=== PATIENT | female | born 1955 | race Caucasian/White ===

== ENCOUNTER 2018-07-04 13:49 | Outpatient (CLI) | payer MEDICARE, MEDICAID ==
[~2018-07-04] VITALS: Ht 162.6 cm; Wt 60.8 kg
[~2018-07-04 13:49] MED LIST: BACLOFEN10 MG PO; LORAZEPAM0.5 MG ORAL; PANTOPRAZOLE SO40 MG ORAL; VIT D PO; ZOCOR20 MG ORAL
[2018-07-04 15:14] VITALS: BP 104/62
[2018-07-04] MEDS ORDERED: DEXILANT60 MG ORAL (15:16)
--- NOTE | 2018-07-04 22:32 | GI Initial Consult Note ---
History of Present Illness General Date patient seen: Jul 04, 2018 Time patient seen: 14:00 Referring physician: Dr. Cortez Reason for Consultation: Vomiting Present Illness HPI A 63 year old female presents to the clinic, complains of vomiting, left and right lower abdominal pain, also GERD and bloating. Pt had normal colonoscopy in 2012 and 2015. The patient recently undergone a CT that showed inflammation in her small bowel. She was scheduled for a capsule endoscopy, but it was unsuccessful due to poor prep. She presents today for a repeat SBCE to evaluate her small bowel. Patient denies N/V/D. Denies constipation. Denies any unintentional weight loss or changes in dietary habits. No signs of abuse or neglect. Patient is not fall risk. Home Meds Reported Medications Dexlansoprazole (Dexilant) 60 Mg Ortiz., 60 MG ORAL DAILY, CAP 07/04/18 Simvastatin (ZOCOR) 20 Mg Tablet, 30 MG ORAL BEDTIME, TAB 05/30/13 Discontinued Reported Medications Baclofen* (BACLOFEN*) 10 Mg Tablet, 10 MG PO QHS, TAB 06/13/13 [Vit D] No Conflict Check, PO DAILY 05/30/13 Lorazepam* (LORAZEPAM*) 0.5 Mg Tablet, 0.5 MG ORAL PRN, TAB 05/30/13 Pantoprazole* (PANTOPRAZOLE*) 40 Mg Tablet., 40 MG ORAL DAILY 05/30/13 Med list reviewed/reconciled: Yes Allergies: Coded Allergies: ACETAMINOPHEN (Verified Allergy, Mild, 05/30/13) CODEINE (Verified Allergy, Mild, 05/30/13) HYDROCODONE (Verified Allergy, Mild, 05/30/13) IBUPROFEN (Verified Allergy, Mild, 05/30/13) Patient History PMH Narrative hypercholesteremia Past Surgical History: none Pertinent Family History: none Social History: Reports: other - tea; Denies: smoking, alcohol use, drug use Review of Systems All Other Systems: negative except mentioned in HPI Physical Exam Vital Signs Date Time Temp Pulse Resp B/P (MAP) Pulse Ox O2 Delivery O2 Flow Rate FiO2 07/04/18 15:14 98.0 84 16 104/62 97 Sp02 EP Interpretation: reviewed, normal General Appearance: well appearing, no apparent distress, alert Head: normocephalic EENT: PERRL/EOMI, normal ENT inspection Neck: supple Respiratory: normal breath sounds, no respiratory distress Cardiovascular: normal rate Gastrointestinal: normal inspection, non tender, soft, normal bowel sounds, non -distended Rectal: deferred Genitourinary: no CVA tenderness Musculoskeletal: normal inspection, back normal Neurologic: normal inspection, alert, oriented x3, responsive Psychiatric: normal inspection, judgement/insight normal, memory normal Skin: normal inspection, normal color, no rash, warm/dry, palpation normal, well hydrated Lymphatic: normal inspection, no adenopathy GI: Plan Problems: (1) Vomiting (2) Abdominal pain (3) GERD (gastroesophageal reflux disease) (4) Encounter for diagnostic endoscopy Plan Hx of SB inflammation found on recent CT, s/p failed SBCE 2/2 to poor bowel prep SBCE to be scheduled. - CLD & (Miralax) prep instructions given and acknowledged by patient. - NPO @ MI day prior procedure explained. Will follow with additional recs post procedure. The patient was seen and examined at bedside and all new and available data was reviewed in the patients chart. I agree with the above findings, impression and plan. (Patient seen earlier today. Signature stamp does not reflect patient encounter time.). - MD Ania DriverBanner Gateway Medical CenterTa PHYSICS PROFESSOR Jul 04, 2018 22:32
== END 2018-07-04 14:19 | disposition home or self-care (01) ==
LOC: PAN 13:49
DX: R11.10 Vomiting, unspecified (principal); K21.9 Gastro-esophageal reflux disease without esophagitis; R14.0 Abdominal distension (gaseous); R10.32 Left lower quadrant pain; R10.31 Right lower quadrant pain; E78.00 Pure hypercholesterolemia, unspecified; Z88.6 Allergy status to analgesic agent
CPT/HCPCS: 99212

== ENCOUNTER 2020-07-17 14:35 | Outpatient (CLI) | payer MEDICARE, MEDICAID ==
[~2020-07-17 14:35] MED LIST changes: +DEXILANT60 MG ORAL
--- NOTE | 2020-07-17 15:28 | General Progress Note ---
Subjective ROS Limited/Unobtainable: No Allergies: Coded Allergies: ACETAMINOPHEN (Verified Allergy, Mild, 05/30/13) CODEINE (Verified Allergy, Mild, 05/30/13) HYDROCODONE (Verified Allergy, Mild, 05/30/13) IBUPROFEN (Verified Allergy, Mild, 05/30/13) Objective General Appearance: alert EENT: normal ENT inspection Neck: supple Cardiovascular: normal rate Respiratory/Chest: lungs clear Abdomen: normal bowel sounds, non tender, soft Extremities: non-tender Assessment/Plan Problem List: (1) Abdominal pain ICD Codes: R10.9 - Unspecified abdominal pain SNOMED: 84916226 (2) GERD (gastroesophageal reflux disease) ICD Codes: K21.9 - Gastro-esophageal reflux disease without esophagitis SNOMED: 339637417 Assessment/Plan: Vit D SIBO Dexillant Align Xifaxan MANAGER ETHICS eval RTC prn Archie Keys MD Jul 17, 2020 15:28
== END 2020-07-17 16:35 | disposition home or self-care (01) ==
LOC: PAN 14:35
DX: R10.9 Unspecified abdominal pain (principal); K21.9 Gastro-esophageal reflux disease without esophagitis; K56.609 Unspecified intestinal obstruction, unspecified as to partial versus complete obstruction; Z88.6 Allergy status to analgesic agent
CPT/HCPCS: 99212